=== PATIENT | male | born 1975 | race Caucasian/White ===

== ENCOUNTER 2017-08-11 16:13 | Emergency (ER) | payer SELFPAY ==
[~2017-08-11] VITALS: Ht 175.3 cm; Wt 67.6 kg
[2017-08-11 16:14] VITALS: BP 132/86; PULSE 86; RESP 16; TEMP 98; O2SAT 100
[2017-08-11] MEDS ORDERED: CLIN300C5 PO (16:29)
--- NOTE | 2017-08-11 16:32 | PD ---
HPI Chief Complaint: Oral / Dental Pain or Problem Time Seen by Provider: 16:18 Travel History International Travel<30 days: No Contact w/Intl Traveler<30days: No Traveled to known affect area: No History of Present Illness HPI 42-year-old male here with left lower dental pain 3 days. Denies fever or chills. He reports he was unable to get into a dentist. Patient has dental decay at the site of the pain. Gum and facial swelling. Symptom severity is moderate. Aggravated heat and cold. No alleviating factors. Denies difficulty swallowing. PFSH Past Medical History Medical History: Denies Significant Hx Social History Tobacco Use: Yes Allergies-Medications (Allergen,Severity, Reaction): Coded Allergies: No Known Allergies (Verified Allergy, Unknown, 08/11/17) Review of Systems Except as stated in HPI: all other systems reviewed are Neg General / Constitutional: No: Fever Physical Exam Narrative GENERAL: Alert male nontoxic-appearing. SKIN: Warm and dry. HEAD: Normocephalic. EYES: No injection or drainage. Mouth: Patient has pain in the left lower molar region. Dental decay present. Surrounding gum erythema present. No swelling to the floor the mouth. Uvula is midline. Airway is patent. Patient tolerating oral secretions. Normal phonation. NECK: Supple, trachea midline. Mild swelling in the left submandibular region. CARDIOVASCULAR: Regular rate and rhythm without murmurs, gallops, or rubs. RESPIRATORY: Breath sounds equal bilaterally. No accessory muscle use. Data Data Last Documented VS Vital Signs Date Time Temp Pulse Resp B/P (MAP) Pulse Ox O2 Delivery O2 Flow Rate FiO2 08/11/17 16:14 98.0 86 16 132/86 (101) 100 MDM Medical Decision Making Medical Screen Exam Complete: Yes Emergency Medical Condition: Yes Differential Diagnosis Dental abscess, dental infection, dental caries Narrative Course 42-year-old male here with left lower dental pain and facial swelling 3 days. On exam patient has widespread dental cavity with swelling noted to the left submandibular region. No swelling to the floor of the mouth. The airway is patent. Patient is tolerating oral secretions. Able to eat and drink without difficulty. Vital signs are stable. He will be put on clindamycin and instructed to follow-up with dentist. He agrees to this plan Diagnosis Primary Impression: Dental abscess Referrals: Dentist Additional Instructions: Take the antibiotics as prescribed. Warm salt water gargles as discussed. Ibuprofen 800 mg (4 [id number] tablets) every 6 hours Scripts Clindamycin (Clindamycin) 300 Mg Cap 300 MG PO Q6H for Infection for 10 Days, #40 CAP 0 Refills Prov: Marcella Olivas 08/11/17 Disposition: 01 DISCHARGE HOME Condition: Stable Marcella Olivas Aug 11, 2017 16:32
[2017-08-11] MEDS ORDERED: KETOROLAC TROMETHAMINE 60 MG/2 ML (IM) VIAL IM ONE (16:45)
== END 2017-08-11 16:52 | disposition home or self-care (01) ==
LOC: PHEFT 16:13
DX: K04.7 Periapical abscess without sinus (principal); K02.9 Dental caries, unspecified; Z72.0 Tobacco use
CPT/HCPCS: 96372; 99284; J1885